=== PATIENT | female | born 1955 | race Caucasian/White ===

== ENCOUNTER → 2021-03-19 | Day surgery (SDC) | payer MEDICARE, OTHER ==
[~2021-03-19] VITALS: Ht 157.5 cm; Wt 68.0 kg
[~2021-03-19] MED LIST: ANTIVERT12.5 MG PO; ASPIRIN EC81 MG PO; BACLOFEN 10MG T10 MG PO; FISH OIL 1,0001 EACH PO; FLONASE ALLER15.8 ML; HYDROCODON-ACE1 EAC2 PO; LISINOPRIL-HCT1 EACH PO; MELOXICAM15 MG PO; METFORMIN HCL500 MG PO; NORCO 5-325 TA1 EACH PO; NORVASC2.5 MG PO; ONDANSETRON ODT4 MG PO; OXYCODONE-ACET1 EAC1 PO; PEPCID AC20 MG PO; PERCOCET 5-3251 EACH PO; PRINIVIL10 MG PO; REPATHA SY140 MG/1 M SC; VALTREX1000 MG PO; VITAMIN D50000 UNIT PO; VOLTAREN **OUT50 MG PO; VOLTAREN100 GM TOP; XARELTO10 MG PO
== END | disposition home or self-care (01) ==
LOC: FAS 12:27
DX: E11.36 Type 2 diabetes mellitus with diabetic cataract (principal); I10 Essential (primary) hypertension; Z88.5 Allergy status to narcotic agent; Z91.041 Radiographic dye allergy status; I25.10 Atherosclerotic heart disease of native coronary artery without angina pectoris; Z79.84 Long term (current) use of oral hypoglycemic drugs
CPT/HCPCS: J2250; J3010; V2632

== ENCOUNTER → 2021-04-16 | Day surgery (SDC) | payer MEDICARE, OTHER ==
[~2021-04-16] VITALS: Ht 157.5 cm; Wt 68.0 kg
== END | disposition home or self-care (01) ==
LOC: FAS 12:25
DX: H25.812 Combined forms of age-related cataract, left eye (principal); I10 Essential (primary) hypertension; Z88.5 Allergy status to narcotic agent; Z88.8 Allergy status to other drugs, medicaments and biological substances; K21.9 Gastro-esophageal reflux disease without esophagitis; Z79.1 Long term (current) use of non-steroidal anti-inflammatories (NSAID); Z79.84 Long term (current) use of oral hypoglycemic drugs; Z79.899 Other long term (current) drug therapy
CPT/HCPCS: J2250; V2632